=== PATIENT | male | born 1945 ===

== ENCOUNTER 2021-11-24 23:34 | Emergency (ER) | payer MEDICARE, SELFPAY ==
--- NOTE | 2021-11-24 23:36 | DI.CT.S_ITS ---
PROCEDURE: CT STROKE INDICATIONS: acute right arm weakness TECHNIQUE: Noncontrast 4.5 mm thick angled axial sections acquired from the foramen magnum to the vertex, with coronal reformats. For radiation dose reduction, the following was used: automated exposure control, adjustment of mA and/or kV according to patient size. COMPARISON: None. FINDINGS: Image quality: Excellent. CSF spaces: There is a heterogeneous left subdural hematoma measuring up to 2.5 cm in thickness along the frontal and parietal lobes. There is associated mass effect on the underlying cerebrum. There is rightward midline shift of 0.7 cm. There is also mild partial effacement of the left basilar cisterns. There is a cystic structure along the midline in the posterior fossa also noted likely representing an arachnoid cyst. There is mild narrowing of the left lateral the left ventricle secondary to mass effect. Brain: Bach-white matter interface appears preserved. Skull and face: Calvarium and visualized facial bones are intact, without suspicious lesions. Sinuses: Visualized sinuses demonstrate mild mucosal thickening within the maxillary sinuses. Mastoid air cells are clear. IMPRESSION: 1. Subarachnoid hematoma along the left frontal and parietal lobes with associated mass effect. Heterogeneous areas of hyper and hypoattenuation within the collection may reflect a hyperacute hematoma or possibly an acute on chronic hemorrhage. 2. Mild rightward shift of up to 0.7 cm and mild partial effacement of the left basilar cisterns. Findings reported to Dr. Alvarez on 11/24/2021 at 11:52 p.m.. This study fulfills neurological imaging criteria for inclusion or exclusion of acute stroke therapies based on available published neurological imaging guidelines. Dictated by: Corey Duff M.D. on 11/24/2021 at 23:52 Approved by: Corey Duff M.D. on 11/24/2021 at 23:59
--- NOTE | 2021-11-24 23:37 | DI.CT.S_ITS ---
PROCEDURE: CT ANGIO HEAD AND NECK INDICATIONS: acute right arm weakness TECHNIQUE: After the administration of intravenous contrast, 1 mm thick sections acquired from the aortic arch through the Ingram of Dc. Post-contrast 4.5 mm thick sections then re-acquired from the foramen magnum to the vertex. 3-dimensional inpxjsn-vhibnwhnw-czluobheny (MIP) and/or volume rendering reformats were acquired of the central intracranial vasculature and neck separately. For radiation dose reduction, the following was used: automated exposure control, adjustment of mA and/or kV according to patient size. COMPARISON: [facility], CT, CT STROKE, 11/24/2021, 23:40. FINDINGS: Image quality: Excellent. BRAIN: CSF spaces: There is a subdural hematoma along the left frontal and parietal lobes measuring up to 2.5 cm. There is internal heterogeneity again noted within the hematoma. Associated mass effect is demonstrated along the left frontal and parietal lobes with leftward midline shift of up to 0.7 cm. There is partial effacement of the left lateral ventricle. There is mild asymmetry of the left basilar cisterns. Prominence of the extra-axial space along the midline in the posterior fossa is redemonstrated likely representing an arachnoid cyst. Brain: No discrete intracranial mass identified. Bach-white matter interface appears preserved. No definite suspicious intracranial enhancement. Skull and face: Calvarium and facial bones appear intact, without suspicious lesions. Orbits appear normal. Sinuses: Sinuses and mastoids are clear. HEAD CT ANGIOGRAPHY: Anterior circulation: Intracranial internal carotid arteries are normal in size and appear patent bilaterally. There is mild atherosclerotic calcification along the cavernous segments of the internal carotid arteries. The paired anterior cerebral arteries appear patent bilaterally. The anterior communicating artery also appears patent. The middle cerebral arteries appear patent bilaterally. No high-grade stenosis, occlusion, or filling defects. No cerebral aneurysms identified. Posterior circulation: Visualized portions of the vertebral arteries demonstrate a right dominant vertebrobasilar system. The distal left vertebral artery appears to terminate in a posterior inferior cerebellar artery. The basilar artery is supplied by the right vertebral artery and appears patent. The posterior cerebral arteries appears patent bilaterally. There is persistent circulation on the left, with the left posterior cerebral artery supplied by a posterior communicating artery. No high-grade stenosis, occlusion, or filling defects. No cerebral aneurysms identified. NECK CT ANGIOGRAPHY: Carotid system: The great vessels demonstrate a conventional anatomy as they arise from the aortic arch. The origins of the common carotid arteries appear patent. The common carotid arteries demonstrate normal caliber and courses. The bifurcation regions are both widely patent. The internal carotid arteries demonstrate normal calibers and courses. Posterior circulation: The origins of the vertebral arteries both appear patent. There is a right dominant vertebrobasilar system. The distal left vertebral artery appears to terminate in a posterior inferior cerebellar artery. The vertebral arteries appear patent along their courses. Soft tissues: Visualized neck soft tissues demonstrate no suspicious abnormalities. Bones: No suspicious bony lesions. Visualized cervical spine demonstrates mild anterolisthesis at C6-C7. There is multilevel degenerative disc disease and facet arthropathy throughout the cervical spine. IMPRESSION: 1. Heterogeneous subdural hematoma redemonstrated along the left frontal and parietal lobes as seen on the preceding noncontrast CT. 2. Associated mass effect with rightward midline shift and effacement of the left lateral ventricle. 3. No high-grade stenosis or occlusion of the central intracranial arteries. 4. No high-grade stenosis or occlusion of the head and neck arteries. There is mild narrowing of less than 50% in the left carotid bulb. Any quantitative measurements of stenosis were performed using NASCET criteria. Dictated by: Corey Duff M.D. on 11/25/2021 at 0:18 Approved by: Corey Duff M.D. on 11/25/2021 at 0:30
[2021-11-24 23:46] VITALS: PULSE 70; O2SAT 92
[2021-11-24 23:47] VITALS: BP 167/74; PULSE 71; RESP 19; O2SAT 91
[2021-11-24 23:48] LABS: Add Manual Diff / Slide Review NO; Basophils Absolute Auto 100 /uL (0-100); Eosinophils Absolute Auto 300 /uL (0-450); Eosinophils Percent Auto 2.7 % (2-4); Hematocrit 44.5 % (41-53); Hemoglobin 15.2 g/dL (13.5-17.5); Lymphocytes Absolute Auto 3600 /uL (1100-4500); Lymphocytes Percent Auto 29.7 % (25-40); Mean Corpuscular HGB Conc 34.1 % (30-36); Mean Corpuscular Hemoglobin 32.3 PG (26-34); Mean Corpuscular Volume 94.7 fL (80-100); Monocytes Absolute Auto 1100 /uL (0-900); Monocytes Percent Auto 9.1 % (3-14); Neutrophils Absolute Auto 7000 /uL (1500-7000); Neutrophils Percent Auto 57.5 % (50-75); Platelet Count 281 X10^3/uL (150-400); Red Blood Cell Count 4.69 X10^6/uL (4.5-5.9); Red Cell Distribution Width 13.9 % (11.6-14.8); White Blood Cell Count 12.1 X10^3/uL (4.5-11.0)
[2021-11-24 23:50] VITALS: BP 146/74; PULSE 70; RESP 31; O2SAT 93
[2021-11-24 23:51] VITALS: BP 146/74; PULSE 72; RESP 20; O2SAT 94; BMI 27.5
[2021-11-24 23:55] VITALS: BP 162/77; PULSE 70; RESP 22; O2SAT 93
[2021-11-24 23:55] LABS: HEMOLYSIS < 15 (0-50)
[2021-11-25] VITALS (8 sets, daily range): BP systolic 144–163; BP diastolic 69–87; PULSE 69–74; RESP 16–34; O2SAT 91–96
[2021-11-25] LABS: Alanine Aminotransferase 29 IU/L (<50); Albumin 4.5 g/dL (3.5-5.0); Albumin Globulin Ratio 1.7 (1.0-2.8); Alkaline Phosphatase 45 U/L (38-126); Aspartate Aminotransferase 27 IU/L (17-59); BUN Creatinine Ratio 15.4 (6-22); Bilirubin Total 0.7 mg/dL (0.2-1.3); Blood Urea Nitrogen 22 mg/dL (9-20); Calcium 9.7 mg/dL (8.4-10.2); Carbon Dioxide 28 mmol/L (22-32); Chloride 105 mmol/L (98-107); Creatine Kinase 140 U/L (55-170); Estimated Glomerular Filt Rate 51 mL/min (>60); Globulin 2.6 g/dL (1.7-4.1); Glucose 108 mg/dL (80-110); Potassium 3.8 mmol/L (3.4-5.1); Sodium 142 mmol/L (137-145); Total Protein 7.1 g/dL (6.3-8.2)
--- NOTE | 2021-11-25 00:03 | ED.GENADULT ---
HPI - General Adult General Chief complaint: Neuro Symptoms/Deficit Stated complaint: Unable to use R arm, poss Stroke Time Seen by Provider: 11/24/21 23:36 Source: patient and EMS Mode of arrival: Ambulatory History of Present Illness HPI narrative: 76-year-old gentleman visiting from [place] has been out on his boat for the last 2 weeks. He went to bed at 9:00 p.m. this evening feeling his usual state of health woke up at 11 and notice that he could no longer move his right arm. Walked up the dock and sought help 911 was called he was transported to the emergency department were code stroke was initiated. States that he has been feeling well and enjoying his 2 weeks of vacation. He was planning to drive home tomorrow. He has been having no fevers, cough, chills, headaches describes no trauma, no recent falls is not a heavy drinker. He has had no chest pain, palpitations, shortness of breath, lower extremity edema, vomiting, nausea or diarrhea. He does not recall his medications at this time Related Data Allergies Allergy/AdvReac Type Severity Reaction Status Date / Time No Known Drug Allergies Allergy Verified 11/25/21 00:08 Review of Systems Review of Systems Narrative: Remainder of complete review of systems is otherwise unremarkable except for that included in the HPI. Patient History Medical History Diabetes Hypertension Social History Smoking Status: Never smoker Smoking Status: Never smoker Substance Use Type: does not use Exam Initial Vital Signs Initial Vital Signs: Vital Signs Pulse Rate 70 11/24/21 23:46 Pulse Oximetry 92 11/24/21 23:46 General: Healthy appearing, in no acute distress. Able to give a complete and coherent history. Well-nourished well-developed HEENT: Moist mucous membranes, normal sclera with reactive pupils, no facial droop Neck: No JVD, supple Respiratory: Lungs are clear to auscultation, no wheezing no rales no rhonchi. Full and symmetrical air movement Cardiac: Regular rate and rhythm no murmurs no bruits Abdomen: Soft, nontender, good bowel tones, no flank pain Skin: Warm and dry, no rashes Neurologic: Right arm weakness with no complaints of decreased sensation. Fluent speech, no visual deficits. Extremities: No trauma, well perfused Psych: Cooperative, appropriate insight and affect NIH Stroke Scale/Score 4 points NIH Stroke Scale INPUTS: 1A: Level of consciousness ?> 0 = Alert; keenly responsive 1B: Ask month and age ?> 0 = Both questions right 1C: 'Blink eyes' & 'squeeze hands' ?> 0 = Performs both tasks 2: Horizontal extraocular movements ?> 0 = Normal 3: Visual hightower ?> 0 = No visual loss 4: Facial palsy ?> 0 = Normal symmetry 5A: Left arm motor drift ?> 0 = No drift for 10 seconds 5B: Right arm motor drift ?> 3 = No effort against gravity 6A: Left leg motor drift ?> 0 = No drift for 5 seconds 6B: Right leg motor drift ?> 0 = No drift for 5 seconds 7: Limb Ataxia ?> 1 = Ataxia in 1 Limb 8: Sensation ?> 0 = Normal; no sensory loss 9: Language/aphasia ?> 0 = Normal; no aphasia 10: Dysarthria ?> 0 = Normal 11: Extinction/inattention ?> 0 = No abnormality Course Orders Ordered: ED Orders 11/24/21 23:36 CT Stroke Stat EKG-12 Lead Stat 11/24/21 23:37 CT angio head and neck Stat 11/24/21 23:40 Complete Blood Count AUTO DIFF Stat Comprehensive Metabolic Panel Stat Troponin & CK Cardiac Panel Stat 11/25/21 00:05 COVID19 -Nasal RAPID/Pre-Proc Stat Discontinued Medications Sodium Chloride (Normal Saline 0.9%) 1,000 mls @ 150 mls/hr IV CONT QUE Last Infusion: 11/25/21 01:00 Dose: 150 mls/hr Documented By: Admin: 11/25/21 00:09 Dose: 150 mls/hr Documented By: BRENDA Vital Signs Vital signs: Vital Signs - 8 hr 11/24/21 23:51 11/24/21 23:46 11/24/21 23:47 Pulse Rate 72 70 71 Respiratory Rate 20 19 Blood Pressure 146/74 H Pulse Oximetry 94 92 91 Oxygen Delivery Method Room Air 11/24/21 23:47 11/24/21 23:50 11/24/21 23:50 Pulse Rate 70 Respiratory Rate 31 H Blood Pressure 167/74 H 146/74 H Pulse Oximetry 93 Oxygen Delivery Method 11/24/21 23:55 11/24/21 23:55 11/25/21 00:00 Pulse Rate 70 Respiratory Rate 22 Blood Pressure 162/77 H 156/75 H Pulse Oximetry 93 Oxygen Delivery Method 11/25/21 00:00 11/25/21 00:05 11/25/21 00:05 Pulse Rate 71 69 Respiratory Rate 23 16 Blood Pressure 144/69 H Pulse Oximetry 92 91 Oxygen Delivery Method 11/25/21 00:10 11/25/21 00:10 11/25/21 00:15 Pulse Rate 71 74 Respiratory Rate 23 34 H Blood Pressure 152/76 H Pulse Oximetry 94 94 Oxygen Delivery Method 11/25/21 00:15 11/25/21 00:20 11/25/21 00:20 Pulse Rate 73 Respiratory Rate 34 H Blood Pressure 163/87 H 154/84 H Pulse Oximetry 96 Oxygen Delivery Method 11/25/21 00:25 11/25/21 00:25 11/25/21 00:30 Pulse Rate 71 Respiratory Rate 22 Blood Pressure 158/83 H 155/77 H Pulse Oximetry 92 Oxygen Delivery Method 11/25/21 00:30 11/25/21 00:35 11/25/21 00:35 Pulse Rate 72 72 Respiratory Rate 21 21 Blood Pressure 152/73 H Pulse Oximetry 92 91 Oxygen Delivery Method Medical Decision Making Lab Data Result diagrams: 11/24/21 23:40 11/24/21 23:40 Labs: Lab Results 11/24/21 11/24/21 11/25/21 Range/Units 23:40 23:40 00:05 WBC 12.1 H (4.5-11.0) X10^3/uL RBC 4.69 (4.5-5.9) X10^6/uL Hgb 15.2 (13.5-17.5) g/dL Hct 44.5 (41-53) % MCV 94.7 (80-100) fL MCH 32.3 (26-34) PG MCHC 34.1 (30-36) % RDW 13.9 (11.6-14.8) % Plt Count 281 (150-400) X10^3/uL Neut % (Auto) 57.5 (50-75) % Lymph % (Auto) 29.7 (25-40) % [facility] % (Auto) 9.1 (3-14) % Eos % (Auto) 2.7 (2-4) % Baso % (Auto) 1.0 (0-2) % Neut # (Auto) 7000 (6501-8465) /uL Lymph # (Auto) 3600 (0099-1421) /uL [facility] # (Auto) 1100 H (0-900) /uL Eos # (Auto) 300 (0-450) /uL Baso # (Auto) 100 (0-100) /uL Sodium 142 (137-145) mmol/L Potassium 3.8 (3.4-5.1) mmol/L Chloride 105 (98-107) mmol/L Carbon Dioxide 28 (22-32) mmol/L BUN 22 H (9-20) mg/dL Creatinine 1.43 H (0.66-1.25) mg/dL Estimated GFR 51 L (>60) mL/min BUN/Creatinine Ratio 15.4 (6-22) Glucose 108 (80-110) mg/dL Calcium 9.7 (8.4-10.2) mg/dL Total Bilirubin 0.7 (0.2-1.3) mg/dL AST 27 (17-59) IU/L ALT 29 (<50) IU/L Alkaline Phosphatase 45 (38-126) U/L Total Creatine Kinase 140 (55-170) U/L CK-MB (CK-2) 2.58 H (<2.37) ng/mL CK-MB (CK-2) Rel Index 1.8 (1.5-5.0) % Troponin I < 0.012 (0.01-0.034) ng/mL Total Protein 7.1 (6.3-8.2) g/dL Albumin 4.5 (3.5-5.0) g/dL Globulin 2.6 (1.7-4.1) g/dL Albumin/Globulin Ratio 1.7 (1.0-2.8) SARS-CoV-2 (PCR) Negative (Negative) Point of Care Testing Glucose POC 128 Point of care testing: Point of Care Testing Glucose POC [address] scan - head: My Impression: This is a subdural hematoma. Have contacted Dr. Duff who will adjust his impression indicating subarachnoid Radiologist's Impression: ? FINDINGS:? Image quality:? Excellent.? ? CSF spaces: ? There is a heterogeneous left subdural hematoma measuring up to 2.5 cm in thickness along the frontal and parietal lobes.? There is associated mass effect on the underlying cerebrum.? There is rightward midline shift of 0.7 cm.? There is also mild partial effacement of the left basilar cisterns.? There is a cystic structure along the midline in the posterior fossa also noted likely representing an arachnoid cyst.? There is mild narrowing of the left lateral the left ventricle secondary to mass effect. ? Brain:? Bach-white matter interface appears preserved.? ? Skull and face:? Calvarium and visualized facial bones are intact, without suspicious lesions.? ? Sinuses:? Visualized sinuses demonstrate mild mucosal thickening within the maxillary sinuses.? Mastoid air cells are clear. ? IMPRESSION:? ? 1. Subarachnoid hematoma along the left frontal and parietal lobes with associated mass effect.? Heterogeneous areas of hyper and hypoattenuation within the collection may reflect a hyperacute hematoma or possibly an acute on chronic hemorrhage. ? 2. Mild rightward shift of up to 0.7 cm and mild partial effacement of the left basilar cisterns. ? Findings reported to Dr. Alvarez on 11/24/2021 at 11:52 p.m.. ? This study fulfills neurological imaging criteria for inclusion or exclusion of acute ECG Data Interpretation: Sinus rhythm at a rate of 69 No acute ischemic changes Right bundle branch block Occasional PVC MDM Narrative Medical decision making narrative: 76-year-old gentleman presents with right upper arm paralysis, NIH score of 4. Last known well as 9:[address] scan shows sub dural hematoma measuring 2.5 cm in thickness along the frontal and parietal lobes. Associated mass effect on the underlying cerebrum. Rightward shift of 0.7 cm. Images are pushed to [facility]. Care is reviewed with Dr. Marsh, ED attending. There lift is activated and patient will be transferred to ED to ED for acute subdural hematoma in the absence of trauma. He is awake alert and hemodynamically stable at this time. Air lift is available and patient is transported to [facility] for definitive treatment Critical Care Time Critical Care Time Critical Care Time: Yes Total Critical Care Time: 33 Attestation: Critical care time is separate from other billable procedures. There is a high probability of a significant, sudden or life-threatening deterioration that requires my full and direct attention, intervention and personal management. This critical care time includes consultation with family and other consulting doctors, review of records, and interpretation of data from labs, EKGs and imaging as well as managements of acute neurologic changes with subdural hematoma Discharge Plan Departure Patient Disposition: [facility] Clinical Impression: Acute subdural hematoma
[2021-11-25] MEDS: SODIUM CHLORIDE 0.9% 1,000 ML 150 ML IV (00:09)
--- NOTE | 2021-11-25 00:10 | PC.NURSE ---
Pt is able to lift Right arm, some drift noted at this time but has limited to no ROM to hand
[2021-11-25 00:23] LABS: CKMB % Relative Index 1.8 % (1.5-5.0); Creatine Kinase MB 2.58 ng/mL (<2.37); Troponin I < 0.012 ng/mL (0.01-0.034)
[2021-11-25 00:54] LABS: COVID19 -Nasal RAPID Negative (Negative)
== END 2021-11-25 01:10 | disposition short-term general hospital (02) ==
PROVIDERS: Emergency Provider Emergency Medicine
DX: I62.01 Nontraumatic acute subdural hemorrhage (principal); Z20.822 Contact with and (suspected) exposure to COVID-19
CPT/HCPCS: 36415; 70450; 70496; 70498; 80053; 82550; 82553; 82962; 84484; 85025; 87635; 93005; 93010; 99284; 99291; C9803; Q9967